=== PATIENT | male | born 1975 | race Caucasian/White ===

== ENCOUNTER → 2016-07-04 | Outpatient (CLI) | payer BC | LOC: COL.RAD 15:30 | DX: R10.12 Left upper quadrant pain (principal); N20.0 Calculus of kidney; R10.11 Right upper quadrant pain; N28.89 Other specified disorders of kidney and ureter; Z87.442 Personal history of urinary calculi | CPT/HCPCS: Q9967 ==

== ENCOUNTER → 2017-10-01 | Outpatient (CLI) | payer BC | LOC: COL.RAD 13:15 | DX: I66.8 Occlusion and stenosis of other cerebral arteries (principal); R93.0 Abnormal findings on diagnostic imaging of skull and head, not elsewhere classified; G43.909 Migraine, unspecified, not intractable, without status migrainosus; E29.1 Testicular hypofunction | CPT/HCPCS: A9585 ==

== ENCOUNTER 2017-10-04 13:18 | Outpatient (CLI) | payer BC ==
[~2017-10-04] VITALS: Ht 175.3 cm; Wt 50.7 kg
[2017-10-04] MEDS ORDERED: METHADONE H10 MG/TAB PO (13:43)
[2017-10-04] MEDS ORDERED: DILAUDID8 M1 PO (13:44)
[2017-10-04] MEDS ORDERED: FLOMAX 0.40.4 MG/CAP PO (13:44)
[2017-10-04] MEDS ORDERED: CYMBALTA 60MG60 MG PO (13:45)
[2017-10-04] MEDS ORDERED: TOPROL XL100 MG PO (13:45)
[2017-10-04] MEDS ORDERED: RITALIN 20M20 MG/TAB PO (13:46)
[2017-10-04] MEDS ORDERED: ADVIL200 MG PO (13:47)
[2017-10-04 13:57] VITALS: BP 117/89; PULSE 78
[2017-10-04 14:41] VITALS: BP 111/76; PULSE 70
[2017-10-04 14:46] VITALS: BP 111/76; PULSE 66
[2017-10-04 15:00] VITALS: BP 116/72; PULSE 64
[2017-10-04 15:40] VITALS: BP 120/71; PULSE 62
[2017-10-04 15:56] VITALS: BP 117/72; PULSE 58
== END 2017-10-04 15:57 | disposition home or self-care (01) ==
LOC: COL.RAD 13:18
DX: R51 Headache (principal)

== ENCOUNTER → 2019-04-28 | Outpatient (CLI) | payer BC ==
[~2019-04-28] MED LIST: ADVIL200 MG PO; CYMBALTA 60MG60 MG PO; DILAUDID8 M1 PO; FLOMAX 0.40.4 MG/CAP PO; METHADONE H10 MG/TAB PO; RITALIN 20M20 MG/TAB PO; TOPROL XL100 MG PO
== END ==
LOC: COL.RAD 13:42
DX: N20.0 Calculus of kidney (principal); K59.00 Constipation, unspecified

== ENCOUNTER → 2020-09-28 | Outpatient (CLI) | payer SELFPAY | LOC: COL.RAD 13:47 | DX: N20.0 Calculus of kidney (principal); N28.1 Cyst of kidney, acquired; K57.30 Diverticulosis of large intestine without perforation or abscess without bleeding ==